=== PATIENT | male | born 1940 | race Caucasian/White ===

== ENCOUNTER 2016-03-21 15:22 | Emergency (ER) | payer OTHER ==
[~2016-03-21] VITALS: Ht 182.9 cm; Wt 68.0 kg
[2016-03-21 15:29] VITALS: BP 140/68
[2016-03-21] MEDS ORDERED: LIDOCAINE 1% HCL (LOCAL ANESTH.) INJ 20ML MDV ONE (17:01)
[2016-03-21] MEDS ORDERED: LIDOCAINE 1% HCL (LOCAL ANESTH.) INJ 20ML MDV IN ONE (17:15)
[2016-03-21] MEDS ORDERED: BACITRACIN-POLYMYXIN B TOPICAL OINT UD TOP ONE (17:42)
[2016-03-21] MEDS ORDERED: SODIUM CHLORIDE 0.9% 500 ML IV ONE (17:45)
[2016-03-21] MEDS ORDERED: TETANUS-DIPTH-ACEL PERTUSSIS 0.5ML SYRG IM ONE (17:45)
[2016-03-21] MEDS ORDERED: cefTRIAXone 1GM/50ML D5W 50 ML IV ONE (17:45)
== END 2016-03-21 18:21 | disposition home or self-care (01) ==
LOC: EDBD 15:31 → ER 15:31
DX: S61.411A Laceration without foreign body of right hand, initial encounter (principal); S61.211A Laceration without foreign body of left index finger without damage to nail, initial encounter; E78.5 Hyperlipidemia, unspecified; I10 Essential (primary) hypertension; W54.0XXA Bitten by dog, initial encounter; Y93.89 Activity, other specified; Y99.8 Other external cause status; Y92.89 Other specified places as the place of occurrence of the external cause
CPT/HCPCS: 12005; 73130; 90471; 90715; 96365; 99284; J0696; J2001; J7030